=== PATIENT | male | born 1990 | race African-American/Black ===

== ENCOUNTER 2019-01-16 02:19 | Emergency (ER) | payer OTHER ==
[~2019-01-16] VITALS: Ht 180.3 cm; Wt 86.2 kg
[2019-01-16 02:20] VITALS: BP 123/69
--- NOTE | 2019-01-16 02:20 | NUR ---
BIBA TAKEN TO BED #10
[2019-01-16] MEDS ORDERED: KETOROLAC 30 MG/ML VIAL IM ONE (02:25)
--- NOTE | 2019-01-16 03:01 | NUR ---
28 Y/O MALE BIB AMBULANCE WITH CHIEF COMPLAINT OF SOB. PARAMEDICS ARRIVED ON SCENE WITH PT STATING HE IS HAVING SOB. PT STATES RIDING THE BUS AND GETTING OFF DUE TO DIFFICULTY BREATHING. UPON ASSESSMENT, PT HAS CLEAR BILAT LUNG SOUNDS. PT SPO2 AT 97% ROOM AIR. NO NOTABLE SIGNS OF RESPIRATORY DISTRESS. PT C/O OF ABDOMINAL CRAMPING 12/06. BS ACTIVE X4 QUADRANTS. PT DENIES NVD. PT VSS. ERMD AWARE. WILL CONTINUE TO MONITOR.
[2019-01-16 05:11] VITALS: BP 129/59
--- NOTE | 2019-01-16 05:11 | NUR ---
PT DISCHARGED WITH PAPER. RX NAPROSYN, ALBUTEROL INHALER. EDUCATED PT REGARDING MEDICATIONS AND S/E. EDUCATED PT REGARDING D/C DIAGNOSIS AND INSTRUCTIONS. PT VERBALIZED UNDERSTANDING OF TEACHING. TOLD PT TO FOLLOW UP WITH PCP AND WHEN TO RETURN TO ED. PT VSS. NO SOB. ALL QUESTIONS ANSWERED.
== END 2019-01-16 05:11 | disposition home or self-care (01) ==
LOC: MED 02:19
DX: R07.89 Other chest pain (principal); F17.210 Nicotine dependence, cigarettes, uncomplicated
CPT/HCPCS: 71045; 99283; J1885; Q0092